=== PATIENT | male | born 1985 | race Caucasian/White ===

== ENCOUNTER 2017-03-24 23:50 | Emergency (ER) | payer BC ==
[~2017-03-24] VITALS: Ht 182.9 cm; Wt 86.4 kg
[~2017-03-24 23:50] MED LIST: NORCO 325 MG-51 TAB PO; PROZAC 10MG10 MG PO; XANAX 0.5MG0.5 MG PO; ZOFRAN 4MG T4 MG/TAB PO
[2017-03-24 23:55] VITALS: TEMP 98.2
[2017-03-25] MEDS ORDERED: DOXYCYCLINE 10100 MG PO (00:16)
[2017-03-25 00:43] VITALS: BP 130/84; PULSE 90
[2017-03-26 08:26] LABS: ROCKY MOUNTAIN SPOT FEVER-ABS <1:16 (<1:16)
[2017-03-26 16:41] LABS: LYME IgG WESTERN BLOT Negative (Negative)
== END 2017-03-25 00:40 | disposition home or self-care (01) ==
LOC: COL.ER 23:50
PROVIDERS: Physician Assistant
DX: S30.861A Insect bite (nonvenomous) of abdominal wall, initial encounter (principal); W57.XXXA Bitten or stung by nonvenomous insect and other nonvenomous arthropods, initial encounter

== ENCOUNTER → 2018-09-18 | Outpatient (REF) ==
[~2018-09-18] MED LIST changes: +DOXYCYCLINE 10100 MG PO
== END ==
LOC: ZLAB.WCH 09:33
DX: Z01.89 Encounter for other specified special examinations (principal)